=== PATIENT | female | born 1930 | race Caucasian/White ===

== ENCOUNTER 2018-03-22 16:10 | Inpatient (IN) ==
[2018-03-22] MEDS ORDERED: 0.9 % SODIUM CHLORIDE 1,000 ML IV ONE (16:34)
[2018-03-22] MEDS ORDERED: ONDANSETRON 4 MG/2 ML VIAL IV ONE (16:42)
--- NOTE | 2018-03-22 16:53 | Emergency Department Note ---
General Adult HPI - General Chief complaint: Dizziness Stated complaint: Nausea, dizzy. Time Seen by Provider: 03/22/18 16:22 Source: patient, family Mode of arrival: wheelchair Limitations: physical limitation (Both the patient and her have some gross hearing loss) - History of Present Illness HPI Narrative: 88-year-old female with on and off episodes of lightheadedness and weakness for the last day or so. She cannot give me any specifics and is a relatively poor historian. It sounds like she was at home seated and just felt lightheaded sufficiently that her convinced her to come in. He says he has been trying to get her to come in for a couple weeks. However it is unclear if there was actually a precipitating event. Patient insists that she has not fallen. She does note some nausea but denies any vomiting trouble urinating or with a bowel movement. She says she may have had some chest pain but does not specifically recall any she is currently pain-free. she states that she has some new right lower leg weakness especially at the hip now and having some trouble moving her right leg. She states that this is new, but her states that it may have been going on for longer than that. She has had a prior stroke as well as a CLINICAL RN shunt placed for NPH. Further she does have chronic decreased sensation in her right lower leg and foot unclear cause. Again I am increasing the history together between the patient and her as sometimes the stories are contradictory. The seems to have the better memory and he does take care of her and give her medicines per the chart- I did review her charts and read some of previous documentation including her last admission here so I can get a sense of her general health status as well as comorbidities. - Related Data Home Medications Medication Instructions Recorded Confirmed Cilostazol [Pletal] 100 mg PO BIDAC 10/28/15 07/15/17 Levothyroxine [Synthroid] 125 mcg PO DAILY 10/28/15 03/22/18 Lisinopril [Zestril] 10 mg PO DAILY 10/28/15 03/22/18 Omeprazole [Prilosec] 20 mg PO BIDAC 10/28/15 07/15/17 Spironolactone [Aldactone] 25 mg PO DAILY 10/28/15 07/15/17 Clopidogrel [Plavix] 75 mg PO DAILY 02/19/16 07/15/17 traMADol [Ultram] 50 - 100 mg PO Q4HP PRN 02/19/16 07/15/17 Diltiazem HCl [Cartia Xt] 300 mg PO 07/15/17 Previous Rx's Medication Instructions Recorded Ascorbic Acid [Vitamin C] 500 mg PO BID #60 tablet 02/19/16 Ferrous Sulfate 325 mg PO BIDCC #60 tablet 02/19/16 Nitrofurantoin Monohyd/M-Cryst 100 mg PO BID #14 cap 07/15/17 [Macrobid 100 mg Capsule] Allergies Allergy/AdvReac Type Severity Reaction Status Date / Time influenza virus vaccine, Allergy Severe ADMISSION Verified 12/18/17 11:52 specific TO THE [[facility] VACC,SPECIFIC] promethazine [From PHENERGAN] Allergy Intermediate CONFUSION, Verified 12/18/17 11:52 SEDATION, LETHARGY. Penicillins Allergy Unknown Rash Verified 12/18/17 11:52 lorazepam AdvReac Unknown Confusion Verified 12/18/17 11:52 meperidine AdvReac Unknown Nausea/Vomi Verified 12/18/17 11:52 ting Review of Systems Review of Systems: I did attempt to get a 12 point review of systems but as noted in the HPI she is a relatively poor historian and so it is unclear if this is reliable or not. Anyways per the HPI all negative review of systems except as noted above Limitations: ROS unobtainable due to patients medical condition Past Medical History - Past Medical History [facility] Narrative: Some of the history I was able to verify with the patient i.e. stroke history- notably patient says that she did not have any residual deficits after the stroke years ago Source: old records reviewed, obtained from family Medical history: Reports: arthritis, CVA, GERD, hypertension, peripheral artery disease, thyroid disease, other (NPH status post shunt, anemia) Psychiatric history: Reports: no psych history PRODUCTION HELPER history: Reports: non-contributory Surgical history ED: Reports: appendectomy, hysterectomy, orthopedic, other ( Cervical discectomy), tonsillectomy, other (CLINICAL RN shunt, rectocele, bladder) - Social History smoking status: Former smoker Alcohol use: Reports: Rarely Drug use: Reports: none Physical Exam No acute distress resting comfortably. Normocephalic atraumatic. Conjunctive are clear sclerae nonicteric. No nasal discharge or congestion. Oropharynx is pink and moist. Neck is supple without lymphadenopathy thyromegaly or carotid bruit. Heart is regular rate and rhythm no murmur appreciated. Lungs are clear to auscultation bilaterally without wheezes rales rhonchi or respiratory distress. Abdomen is soft nontender nondistended. No peritoneal signs or guarding. No pedal edema. +2 radial pulse. Alert oriented. No dysarthria tremor or ataxia. Cranial nerves II through XII grossly intact. Notable weakness of the right leg at the hip flexors/extensors. Poor short-term memory . otherwise neuro exam negative Limitations: no limitations Course Vital Signs Temperature 97.1 F 03/22/18 16:11 Pulse Rate 72 03/22/18 16:11 Respiratory Rate 26 H 03/22/18 16:11 Blood Pressure 133/73 03/22/18 16:11 Pulse Oximetry (%) 100 03/22/18 16:11 Temperature 97.1 F 03/22/18 16:11 Pulse Rate 81 03/22/18 18:01 Respiratory Rate 15 03/22/18 18:56 Blood Pressure 94/77 03/22/18 18:32 Pulse Oximetry (%) 99 03/22/18 18:01 Medical Decision Making - Medical Records Medical records reviewed: Yes I reviewed the patient's medical records. - Lab Data Lab results reviewed: Yes I reviewed the patient's lab results. Result diagrams: 03/22/18 16:48 03/22/18 16:48 Lab Results 03/22/18 03/22/18 03/22/18 Range/Units 16:48 16:48 16:48 WBC 5.6 (4.5-11.0) K/mcL RBC 3.03 L (4.00-5.20) M/mcL Hgb 6.9 L* (12.0-15.0) g/dL Hct 22.4 L (36.0-48.0) % POC Hct 23.0 L (36.0-48.0) % MCV 74.1 L (80.0-100.0) fL MCH 22.8 L (26.0-34.0) pg MCHC 30.7 L (31.0-36.0) g/dL RDW 18.8 H (11.5-14.5) % Plt Count 280 (140-440) K/mcL MPV 9.5 (7.4-10.4) fL Gran % 63.6 (38.0-78.0) % Lymph % (Auto) 26.1 (15.5-49.0) % [place] % (Auto) 6.8 (1.0-12.0) % Eos % (Auto) 3.3 (0.0-7.0) % Baso % (Auto) 0.2 (0.0-2.0) % Gran # 3.5 (1.8-8.0) K/mcL Lymph # (Auto) 1.5 (1.5-4.8) K/mcL Kitt[place] # (Auto) 0.4 (0.1-0.9) K/mcL Eos # (Auto) 0.2 (0.0-0.7) K/mcL Baso # (Auto) 0 (0.0-0.3) K/mcL POC Sodium 139 (133-145) mmol/L Sodium 138 (133-145) mmol/L POC Potassium 3.9 (3.3-5.1) mmol/L Potassium 4.1 (3.3-5.1) mmol/L POC Chloride 105 (96-108) mmol/L Chloride 101 (96-108) mmol/L Carbon Dioxide 22 (22-30) mmol/L POC Total CO2 23 (22-30) mmol/L Anion Gap 15.0 (8-16) POC BUN 26 H (8-23) mg/dl BUN 25 H (8-23) mg/dl Creatinine 1.2 H (0.6-1.1) mg/dl POC Creatinine 1.3 H (0.6-1.1) mg/dl GFR Calculation 40 Glucose 105 (70-105) mg/dL POC Glucose 104 (70-105) mg/dL Calcium 9.2 (8.6-10.4) mg/dl POC WB Ioniz Calcium 1.19 (1.16-1.32) mmol/L Total Bilirubin < 0.2 (0.0-1.0) mg/dL AST 17 (0-37) U/l ALT 12 (0-40) U/l Alkaline Phosphatase 82 (39-117) U/L Troponin T 0.03 (0-0.03) ng/ml NT-Pro-B Natriuret Pep (0-450) pg/ml Total Protein 6.9 (5.9-8.4) gm/dL Albumin 4.4 (3.2-5.2) gm/dL Globulin 2.5 (2.2-3.7) gm/dL Albumin/Globulin Ratio 1.8 (1.0-2.3) 03/22/18 Range/Units 16:48 WBC (4.5-11.0) K/mcL RBC (4.00-5.20) M/mcL Hgb (12.0-15.0) g/dL Hct (36.0-48.0) % POC Hct (36.0-48.0) % MCV (80.0-100.0) fL MCH (26.0-34.0) pg MCHC (31.0-36.0) g/dL RDW (11.5-14.5) % Plt Count (140-440) K/mcL MPV (7.4-10.4) fL Gran % (38.0-78.0) % Lymph % (Auto) (15.5-49.0) % Kitt[place] % (Auto) (1.0-12.0) % Eos % (Auto) (0.0-7.0) % Baso % (Auto) (0.0-2.0) % Gran # (1.8-8.0) K/mcL Lymph # (Auto) (1.5-4.8) K/mcL Kitt[place] # (Auto) (0.1-0.9) K/mcL Eos # (Auto) (0.0-0.7) K/mcL Baso # (Auto) (0.0-0.3) K/mcL POC Sodium (133-145) mmol/L Sodium (133-145) mmol/L POC Potassium (3.3-5.1) mmol/L Potassium (3.3-5.1) mmol/L POC Chloride (96-108) mmol/L Chloride (96-108) mmol/L Carbon Dioxide (22-30) mmol/L POC Total CO2 (22-30) mmol/L Anion Gap (8-16) POC BUN (8-23) mg/dl BUN (8-23) mg/dl Creatinine (0.6-1.1) mg/dl POC Creatinine (0.6-1.1) mg/dl GFR Calculation Glucose (70-105) mg/dL POC Glucose (70-105) mg/dL Calcium (8.6-10.4) mg/dl POC WB Ioniz Calcium (1.16-1.32) mmol/L Total Bilirubin (0.0-1.0) mg/dL AST (0-37) U/l ALT (0-40) U/l Alkaline Phosphatase (39-117) U/L Troponin T (0-0.03) ng/ml NT-Pro-B Natriuret Pep 206.8 (0-450) pg/ml Total Protein (5.9-8.4) gm/dL Albumin (3.2-5.2) gm/dL Globulin (2.2-3.7) gm/dL Albumin/Globulin Ratio (1.0-2.3) - Radiology Data Radiology results reviewed: Yes I reviewed the patient's radiology results. CT scan of the head shows no acute findings but she does have chronic small subdural hematoma with some chronic ischemic changes. Also CLINICAL RN shunt in place Chest x-ray shows volume overload mild CHF. CLINICAL RN shunt again looks in place - EKG Data EKG #1 EKG attestation: Yes I reviewed and interpreted this EKG. EKG results narrative: EKG shows a rate of 73 with a right bundle branch block which is not new compared with 12/18/2017. There is horizontal ST depression in V4 to V6 approximately 1 full box-this does appear to be new but nonspecific Disposition Pt seen by INSTRUCTOR PAINTING/PA only: No Clinical Impression: Weakness generalized, Mild cognitive impairment with memory loss CHF (congestive heart failure) Qualifiers: Heart failure type: unspecified Heart failure chronicity: unspecified Qualified Code(s): I50.9 - Heart failure, unspecified Iron deficiency anemia Qualifiers: Iron deficiency anemia type: unspecified iron deficiency Qualified Code(s): D50.9 - Iron deficiency anemia, unspecified Summary: She has nonspecific symptoms that she cannot really describe to me well. However it does appear that she has got some new right leg weakness concern for possible CVA versus CLINICAL RN shunt issue versus?. Additionally the nausea and weakness are concerning as well so we will check laboratory. It is unclear if review of systems is reliable but she is not complaining of belly pain nor shortness of breath. Her lungs are clear on exam but we will check x-ray just to be sure no occult findings At this point with her EKG showing new findings of ST depression in the lateral leads will check a troponin as well although she is not having chest pain at this time Chest x-ray showed mild CHF with volume overload features. Start furosemide and add proBNP. She is already on spironolactone and lisinopril. Blood pressure is normal at this point CT scan head without contrast again shows stable CLINICAL RN shunt chronic findings but no acute stroke. Found to have low hemoglobin-when compared to past does look like she has been leaking hemoglobin over the last 6 months or so likely-MCV is low as well with mild increase in BUN. She saw Dr. 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 I discussed the case again with Dr. Sherrie jacobson and he agreed to see her in the hospital. He recommended colonoscopy and advised me to discuss that with her. The patient and her do want colonoscopy. Transfusion is ordered for 3 units PRBCs with 1 to hold I also discussed case with hospitalist, Dr. Erickson Munoz who agreed to accept patient for further care in the hospital. She will be admitted for transfusion and further workup of acute on chronic symptomatic anemia likely from GI loss Disposition: Xfer As Inpt ([facility]) Condition: Serious Referrals: Kavon Fitzpatrick MD [Primary Care Provider] -
--- NOTE | 2018-03-22 17:19 | Cat Scan Report ---
CLINICAL INFORMATION: COMPARISON: None. TECHNIQUE: 2.5 mm helical slices were obtained in the skull base to vertex. Following reconstruction, axial reformatted images were reviewed at bone and parenchymal windows. The exam was performed using radiation dose optimization techniques including, but not limited to, automated exposure control, adjustment of the mA and/or kV according to patient size and use of iterative reconstruction technique. FINDINGS: The ROLL PLUGGER shunt catheter enters through a right frontal craniotomy extending through right frontal lobe penetrating the septum pellucidum extending into the frontal horn of the left lateral ventricle. The shunt is in stable position. The ventricles remain normal size relative to the sulci fissures and cisterns. Minimal symmetric widening of compatible with global atrophy - expected for age. Small symmetric bilateral subdural fluid collections demonstrated long-term stability - there is no evidence of acute subdural hematoma. Mild chronic ischemic changes noted in the deep cerebral white matter. Bone windows show no osseous abnormality IMPRESSION: 1. The ROLL PLUGGER shunt catheter remains in stable position - no evidence recurrent hydrocephalus 2. Mild atrophy and chronic ischemic changes in the deep cerebral white matter - expected for age and stable 3. 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 No acute findings Interpreted and Authenticated by: Cliff Gomez 03/22/18
--- NOTE | 2018-03-22 17:21 | XRay Report ---
CLINICAL INFORMATION: Weakness COMPARISON: 12/18/2017 and 01/15/2014 FINDINGS: The heart is mildly enlarged. Mild mediastinal widening noted. Pulmonary vessels are mildly distended and there is minimal interstitial edema. No definite effusion. The PHYSICIAN ALLERGIST IMMUNOLOGIST shunt catheter overlies the right neck chest and right upper quadrant appears intact IMPRESSION: Mild CHF or volume overload Interpreted and Authenticated by: Cliff Gomez 03/22/18
[2018-03-22] MEDS ORDERED: FUROSEMIDE 20 MG/2 ML VIAL IV ONE ×3 (17:24→22:49)
[2018-03-22 17:41] LABS: Basophils # (Auto) 0 K/mcL (0.0-0.3); Basophils % (Auto) 0.2 % (0.0-2.0); Eosinophils # (Auto) 0.2 K/mcL (0.0-0.7); Eosinophils % (Auto) 3.3 % (0.0-7.0); Granulocytes % (Auto) 63.6 % (38.0-78.0); Lymphocytes # (Auto) 1.5 K/mcL (1.5-4.8); Lymphocytes % (Auto) 26.1 % (15.5-49.0); Mean Cell Volume 74.1 fL (80.0-100.0); Mean Corpuscular HGB Conc 30.7 g/dL (31.0-36.0); Mean Corpuscular Hemoglobin 22.8 pg (26.0-34.0); Monocytes # (Auto) 0.4 K/mcL (0.1-0.9); Monocytes % (Auto) 6.8 % (1.0-12.0); Platelet Count 280 K/mcL (140-440); RBC 3.03 M/mcL (4.00-5.20); Red Cell Distribution Width 18.8 % (11.5-14.5)
[2018-03-22] MEDS ORDERED: ACETAMINOPHEN 325 MG TABLET PO ONE (17:48)
[2018-03-22 17:49] LABS: ALT/SGPT 12 U/l (0-40); Albumin 4.4 gm/dL (3.2-5.2); Albumin/Globulin Ratio 1.8 (1.0-2.3); Alkaline Phosphatase 82 U/L (39-117); Blood Urea Nitrogen 25 mg/dl (8-23)
[2018-03-22] MEDS ORDERED: 0.9 % SODIUM CHLORIDE 250 ML IV SCH ×4 (18:00→19:57)
[2018-03-22 19:53] LABS: Iron 33 mcg/dl (37-145); Transferrin % Saturation 6 % (15-50); Unsaturated Iron Binding 450 mcg/dL (112-346)
--- NOTE | 2018-03-22 20:10 | Internal Med History&Physical ---
Medical - H&P: HPI Patient information: Note initiated : 03/22/18 at 8:09 pm Service Date, if different from initiated Date: [] Patient: Wendy Donald a 88 y/o F admitted on 03/22/18 for Nausea, dizzy.. Chief Complaint: [] Chief complaint: weakness History of present illness: Ms. Donald is a 88 year old F with on and off episodes of lightheadedness and weakness for the last day or so. She cannot give me any specifics and is a relatively poor historian. It sounds like she was at home seated and just felt lightheaded sufficiently that her convinced her to come in. He says he has been trying to get her to come in for a couple weeks. However it is unclear if there was actually a precipitating event. Patient insists that she has not fallen. She does note some nausea but denies any vomiting trouble urinating or with a bowel movement. She denies chest pain but originally in EMD said she has some new right lower leg weakness especially at the hip now and having some trouble moving her right leg. She states that this is new, but her states that it may have been going on for longer than that. To my interview after plan for admission she states her legs are both fine. She has had a prior stroke as well as a PHARMACY CARE COORDINATOR shunt placed for NPH. At this time patient is agreeable to admission and I counseled her that plan is for colonoscopy following blood transfusion - Constitutional Constitutional: Present: as per HPI, weakness. Absent: excessive sweating - Cardiovascular Cardiovascular: Present: dyspnea on exertion. Absent: chest pain, irregular heart rhythm, palpatations, syncope - Respiratory Respiratory: Present: dyspnea on exertion. Absent: cough, chest congestion, excessive phlegm production - Gastrointestinal Gastrointestinal: Absent: abdominal pain, coffee ground emesis, constipation, diarrhea, hematemesis, melena - Genitourinary Genitourinary: Present: menorrhagia, vaginal discharge. Absent: abnormal vaginal bleeding Menstruation: Present: post menopausal - Musculoskeletal Musculoskeletal: Absent: muscle weakness, myalgias - Neurological Neurological: Present: dizziness, memory loss (states memory worse with age), weakness Medical - H&P: PMH Medical history: no PUD, no cancer, no bleeding disorder and no history of past anemia Surgical history: thinks she had past EGD but not colonoscopy. pt says not sure really Pertinent family history: denies family history of ulcers Functional capacity: independent ambulation Smoking status: Unknown if ever smoked Have you smoked in the last 12 months: No Drug use: none Medical - H&P: Meds Home Medications Medication Instructions Recorded Confirmed Type Cilostazol [Pletal] 100 mg PO BIDAC 10/28/15 07/15/17 History Levothyroxine [Synthroid] 125 mcg PO DAILY 10/28/15 03/22/18 History Lisinopril [Zestril] 10 mg PO DAILY 10/28/15 03/22/18 History Omeprazole [Prilosec] 20 mg PO BIDAC 10/28/15 07/15/17 History Spironolactone [Aldactone] 25 mg PO DAILY 10/28/15 07/15/17 History Ascorbic Acid [Vitamin C] 500 mg PO BID #60 tablet 02/19/16 07/15/17 Rx Clopidogrel [Plavix] 75 mg PO DAILY 02/19/16 07/15/17 History Ferrous Sulfate 325 mg PO BIDCC #60 tablet 02/19/16 07/15/17 Rx traMADol [Ultram] 50 - 100 mg PO Q4HP PRN 02/19/16 07/15/17 History Diltiazem HCl [Cartia Xt] 300 mg PO 07/15/17 History Nitrofurantoin Monohyd/M-Cryst 100 mg PO BID #14 cap 07/15/17 Rx [Macrobid 100 mg Capsule] Allergies Allergy/AdvReac Type Severity Reaction Status Date / Time influenza virus vaccine, Allergy Severe ADMISSION Verified 12/18/17 11:52 specific TO THE [[facility] VACC,SPECIFIC] promethazine [From PHENERGAN] Allergy Intermediate CONFUSION, Verified 12/18/17 11:52 SEDATION, LETHARGY. Penicillins Allergy Mild Rash Verified 03/22/18 20:17 lorazepam AdvReac Mild Confusion Verified 03/22/18 20:17 meperidine AdvReac Mild Nausea/Vomi Verified 03/22/18 20:17 ting Medical - H&P: Exam - Constitutional Vitals: Temp Pulse Resp BP Pulse Ox 97.1 F 67 21 136/73 98 03/22/18 16:11 03/22/18 19:31 03/22/18 19:31 03/22/18 19:31 03/22/18 19:31 General appearance: average body habitus, cooperative, no acute distress - Head Head exam: Present: atraumatic - Eye Eye exam: Present: normal appearance. Absent: scleral icterus - Neck Neck exam: Absent: tenderness - Expanded Neck Exam Neck exam: Absent: anterior neck swelling, tracheal deviation - Respiratory Respiratory exam: Present: normal respiratory exam, CTAB. Absent: rales, respiratory distress - Cardiovascular Cardiovascular exam: Present: normal rate and rhythm - GI/Abdominal GI/Abdominal exam: Present: normal bowel sounds, soft. Absent: rebound, tenderness - Extremities Exam Extremities exam: Absent: calf tenderness, pedal edema - Expanded Upper Extremities Exam Vascular: Present: radial pulse (2+) - Expanded Lower Extremities Exam Neuro vascular tendon exam: Absent: motor deficit (both quads, and ankle flexion and extension normal strength. hamstring equal bilat) Medical - H&P: Reslt - Labs CBC & Chem 7: 03/22/18 16:48 03/22/18 16:48 Labs: Short CBC 03/22/18 Range/Units 16:48 WBC 5.6 (4.5-11.0) K/mcL Hgb 6.9 L* (12.0-15.0) g/dL Hct 22.4 L (36.0-48.0) % Plt Count 280 (140-440) K/mcL BMP 03/22/18 16:48 Sodium 138 Potassium 4.1 Chloride 101 Carbon Dioxide 22 BUN 25 H Creatinine 1.2 H Glucose 105 Calcium 9.2 Cardiac Enzymes 03/22/18 Range/Units 16:48 Troponin T 0.03 (0-0.03) ng/ml Liver Function 03/22/18 Range/Units 16:48 Total Bilirubin < 0.2 (0.0-1.0) mg/dL AST 17 (0-37) U/l ALT 12 (0-40) U/l Alkaline Phosphatase 82 (39-117) U/L Albumin 4.4 (3.2-5.2) gm/dL - EKG Data EKG shows normal: sinus rhythm, ST-T waves (nonspecific lateral STTW changes) Medical - H&P: A/P (1) CHF (congestive heart failure) Current visit: Yes Status: Acute will add furosemide between units of blood transfusion (2) Iron deficiency anemia Current visit: Yes Status: Acute check iron studies and transfuse 2 units. pt symptomatic so admitted for transfusion and colonoscopy with GI consult (3) Mild cognitive impairment with memory loss Current visit: Yes Status: Chronic stable - Narrative A/P Narrative: 55 mins spent in evaluation and coordination of care for this admission today
[2018-03-22] MEDS ORDERED: ONDANSETRON 4 MG/2 ML VIAL IV PRN (20:50)
[2018-03-22] MEDS ORDERED: POLYETHYLENE GLYCOL 3350 17 GM PACKET PO ONE ×2 (20:57→21:55)
[2018-03-22] MEDS ORDERED: POTASSIUM CHLORIDE 20 MEQ PACKET PO ONE (20:58)
[2018-03-22] MEDS: 0.9 % SODIUM CHLORIDE 10 ML SYRINGE IV SCH (22:00)
[2018-03-23] MEDS: 0.9 % SODIUM CHLORIDE 10 ML SYRINGE IV SCH ×2 (06:33→13:40)
[2018-03-23 07:14] LABS: Basophils # (Auto) 0 K/mcL (0.0-0.3); Basophils % (Auto) 0 % (0.0-2.0); Eosinophils # (Auto) 0 K/mcL (0.0-0.7); Eosinophils % (Auto) 0.2 % (0.0-7.0); Granulocytes % (Auto) 94.9 % (38.0-78.0); Lymphocytes # (Auto) 0.3 K/mcL (1.5-4.8); Lymphocytes % (Auto) 2.7 % (15.5-49.0); Mean Cell Volume 76.8 fL (80.0-100.0); Mean Corpuscular HGB Conc 31.7 g/dL (31.0-36.0); Mean Corpuscular Hemoglobin 24.4 pg (26.0-34.0); Monocytes # (Auto) 0.3 K/mcL (0.1-0.9); Monocytes % (Auto) 2.2 % (1.0-12.0); Platelet Count 230 K/mcL (140-440); RBC 4.38 M/mcL (4.00-5.20); Red Cell Distribution Width 18.9 % (11.5-14.5)
[2018-03-23] MEDS ORDERED: LEVOTHYROXINE 125 MCG TABLET PO SCH (07:30)
[2018-03-23] MEDS ORDERED: PEG 3350/NA SULF,BICARB,CL/KCL 4,000 ML ORAL.SOL PO ONE (08:00)
[2018-03-23] MEDS: PANTOPRAZOLE 40 MG VIAL IV SCH ×2 (08:07→16:41)
[2018-03-23] MEDS ORDERED: PROPOFOL 200 MG/20 ML VIAL IV SCH (08:15)
[2018-03-23] MEDS ORDERED: MIDAZOLAM 2 MG/2 ML VIAL IV SCH (08:15)
[2018-03-23] MEDS ORDERED: PROPOFOL 20 ML IV ONE (10:11)
[2018-03-23] MEDS ORDERED: MAGNESIUM SULFATE 8.12 MEQ in DEXTROSE 5% IN WATER 50 ML IV ONE (10:11)
[2018-03-23] MEDS ORDERED: MAGNESIUM SULFATE 2 GM/50 ML BAG IV ONE (10:30)
--- NOTE | 2018-03-23 10:49 | Consultation ---
DATE OF CONSULTATION: 03/22/2018 CHIEF COMPLAINT: Iron deficiency anemia with Hemoccult-positive stool. HISTORY OF PRESENT ILLNESS: The patient is an 88-year-old white female who unfortunately is a very poor historian as she has evident dementia. She was brought to the hospital with some vague symptoms of nausea and lightheadedness, perhaps dizziness in recent days and maybe weeks. She really cannot provide any insight into her history. The emergency room physician ordered some laboratory studies and found that her hemoglobin is only 6.9 and her MCV is low at 74. By comparison in December of this year, her hemoglobin was 9.4 with low MCV at 79, but in July 2017, hemoglobin was 12.6 and MCV 94. Her creatinine is 1.2 and BUN 25. The cause of the microcytic anemia is presumably iron deficiency. She denies any abdominal pain or irregular bowel function. No obvious gross bleeding, either melena or bright red blood described by the patient. She really does not have any significant active complaints. She appears comfortable. I went ahead and looked in our office records, and I see that she underwent a colonoscopy in 2011. I am not sure if I did that procedure or whether it was someone else in our office, but the colonoscopy showed only small hyperplastic polyps, mild hemorrhoid formation, and severe diverticulosis. I did see this patient in September 2014 for iron deficiency. At that time, she was not anemic, but she was iron deficient with only 10% iron saturation. EGD at that time revealed a moderate hiatal hernia but without evident Sebastian erosions. 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 There were no ulcers. She was seen in our office by the nurse practitioner in October 2014 most recently, 3-1/2 years ago. At that time, the recommendation was to have the patient remain on iron supplementation lifelong. Perhaps the dose could have been reduced from b.i.d. dosing with vitamin C b.i.d., but it was felt that the patient was going to need at least some iron supplementation the rest of her life. I see that on her medication list, she does have iron listed, but she does not know if she is taking it or not. Her seems to remember that she had been on it, but that was " He does not believe that she is taking it currently or recently. PAST MEDICAL HISTORY: The apparent dementia. In fact, she was described as frequently forgetful back in 2013 when I last saw her. She also has hypothyroidism . MEDS AN OUTPATIENT LISTED: Include Pletal, Synthroid, Zestril, Prilosec 20 mg b.i.d., Aldactone, vitamin C and ferrous sulfate are listed, Plavix 75 mg daily, tramadol p.r.n. pain, diltiazem 300 mg. Again, it is not clear which medications, if any, she is currently taking. ALLERGIES: PENICILLIN AND PHENERGAN WELL MEPERIDINE AND LORAZEPAM. SOCIAL HISTORY: No smoking. No alcohol. She lives at home with her . PHYSICAL EXAMINATION: VITAL SIGNS: see VITAL SIGNS: Blood pressure 136/73, pulse 67, respirations 21, temperature 97.1 degrees. GENERAL: The patient is awake and alert. She is oriented in that she knows her name and birthdate, but her history is as mentioned above, very sketchy. She appears in no acute distress. She is calm and cooperative. SKIN: Without stigmata of chronic liver disease. Airway is patent. LUNGS: Clear bilaterally to auscultation. CARDIAC: Regular rate and rhythm without gallop. ABDOMEN: Soft, nontender, nondistended. No mass, no hepatosplenomegaly. No evident ascites. EXTREMITIES: Without edema. LABORATORY STUDIES: White count 5600, hemoglobin 6.9 with MCV 74, platelets 280,000. BUN 25 with creatinine 1.2, glucose 105. Liver chemistries are within normal limits. Albumin 4.4. ASSESSMENT AND RECOMMENDATIONS: This patient does have iron deficiency of longstanding duration. It has been at least 3-1/2 years that she has been known to have iron deficiency. I will say that on the prior evaluation, she was not anemic like she is now. Based on the fact that she had a moderate hiatal hernia a few years ago and a colonoscopy showing severe diverticulosis but no cause of iron deficiency anemia, I would think her iron deficiency anemia may be on the basis of an enlarging hiatal hernia which can cause iron deficiency anemia (Sebastian erosions). She may have arteriovenous malformations throughout the small bowel which would be a fairly common cause of anemia in a person of this age. Of course, there is the possibility of a tumor in the GI tract, although frankly, I would not have expected her to have survived for 3-1/2 or more years with a malignancy underlying her anemia. I was originally going to do an upper GI endoscopy and colonoscopy if the patient was willing. When I talked to her about a colonoscopy tonight, she is hesitant understandably. She asked whether it is " I told her it is not absolutely necessary. In fact, I told her that if the colonoscopy findings were the same as they were in 2012 which is likely, then colonoscopy would not shed light on the cause for her anemia. She politely declines colonoscopy with this in mind. I do not think that is unreasonable given her circumstances. I will recommend an upper GI endoscopy mostly to see if there is enlargement of the hiatal hernia and/or evidence of Sebastian erosions at this time. Whether there are Sebastian erosions or not, I would still recommend being sure the patient is resumed on iron supplementation with vitamin C b.i.d. Possible parenteral iron administration may be considered if she does not tolerate iron, but I suspect some of her failure to take iron may be more a matter of her forgetting and not being aware of what her medication regimen is supposed to be. So EGD is planned for tomorrow late morning. I will make further recommendations based upon findings at endoscopy. Thank you for this consultation. CRISTINA:gary Job ID: [id number] Doc ID: [id number] Cliff Balderas MD
[2018-03-23] MEDS ORDERED: IRON SUCROSE COMPLEX 100 MG/5 ML VIAL IV ONE (12:00)
--- NOTE | 2018-03-23 13:01 | Discharge Summary ---
Medical - DS: Prov Patient information: Note initiated : 03/23/18 at 12:56 pm Service Date, if different from initiated Date: [] Patient: Wendy Donald 88 y/o F admitted on 03/22/18 for Nausea, dizzy.. Chief Complaint: [] Date of admission: 03/22/18 19:45 Discharge date: 03/23/18 Primary care physician: Kavon Fitzpatrick Admitting clinician: Edgar Munoz Attending physician on admission: Edgar Munoz Consults: 03/22/18 18:57 Consult to Physician [CONS] Stat Comment: Consulting Provider: Edgar Munoz Reason For Exam: Physician to Consult Consult to Physician [CONS] Stat Comment: Consulting Provider: Cliff Balderas Reason For Exam: Physician to Consult Attending physician on discharge: Edgar Munoz Medical - DS: Meds - Discharge Medications Prescriptions: RX: Ascorbic Acid [Vitamin C] 500 mg PO BID #60 tab RX: Docusate Sodium [Stool Softener] 100 mg PO BID #100 cap RX: Ferrous Sulfate 325 mg PO BIDCC #60 tab Polyethylene Glycol 3350 [Miralax] 17 gm PO DAILY PRN #30 powd.pack PRN Reason: Constipation Active and Home Medications: Home Medications RX: Cilostazol [Pletal] 100 mg PO BIDAC 10/28/15 [History Confirmed 07/15/17 Last Taken Unknown] RX: Levothyroxine [Synthroid] 125 mcg PO DAILY 10/28/15 [History Confirmed 03/22 Last Taken Unknown] RX: Lisinopril [Zestril] 10 mg PO DAILY 10/28/15 [History Confirmed 03/22/18 Last Taken Unknown] RX: Omeprazole [Prilosec] 20 mg PO BIDAC 10/28/15 [History Confirmed 07/15/17 Last Taken Unknown] RX: Spironolactone [Aldactone] 25 mg PO DAILY 10/28/15 [History Confirmed Last Taken Unknown] RX: Ascorbic Acid [Vitamin C] 500 mg PO BID #60 tablet 02/19/16 [Rx Confirmed Last Taken Unknown] RX: Clopidogrel [Plavix] 75 mg PO DAILY 02/19/16 [History Confirmed 07/15/17 Last Taken Unknown] RX: Ferrous Sulfate 325 mg PO BIDCC #60 tablet 02/19/16 [Rx Confirmed 07/15/17 Last Taken Unknown] RX: traMADol [Ultram] 50 - 100 mg PO Q4HP PRN 02/19/16 [History Confirmed Last Taken Unknown] Diltiazem HCl [Cartia Xt] 300 mg PO 07/15/17 [History Last Taken Unknown] Nitrofurantoin Monohyd/M-Cryst [Macrobid 100 mg Capsule] 100 mg PO BID #14 cap 07/15/17 [Rx Last Taken Unknown] Medical - DS: Hosp Hospital course: Mr. Donald is a 88 year old F admitted with dizzyness and weakness. found to have severe iron deficiency anemia with hgb 5.9. EGD show large hiatal hernia and barretts esophagus without acute bleeding source. colonoscopy declined but recent in last 3 years hyperplastic polyps and no cancer. There were diverticuli. Pt without active bleeding here. Iron level 31 with percent sat 6% so given 200mg iv venofer today in addition to 2 units PRBC given overnight. Pt will have lunch, iron infusion and go home with . He lays out her meds and says she has not been on iron for at least [address] Balderas has noted pt has chronic iron deficiency without acute GI bleeding source found but GI source is suspected. Pt does not desire further interventional workup or treatment. Discharge diagnosis: Iron Deficiency Anemia Secondary discharge diagnosis: symptomatic anemia dementia hypothyroidism Reason for admission: symptomatic anemia Complications: none - Time Spent with Patient Total time spent providing and/or coordinating discharge services: Greater than 30 minutes Specific discharge activities: arranging discharge and follow up plan. discussion with Dr. Johnson and the patient and Medical - DS: Exam - Constitutional Vitals: Vital Signs Temp Pulse Pulse Pulse Resp BP BP 03/23/18 11:29 98 F 16 130/69 03/23/18 11:16 98.2 F 131/49 03/23/18 11:08 116/46 03/23/18 10:54 67 103/49 03/23/18 10:49 70 108/45 03/23/18 10:46 71 140/51 03/23/18 10:44 72 107/47 03/23/18 10:32 79 16 153/78 03/23/18 08:17 97.7 F 123/62 03/23/18 04:16 98.8 F 79 18 146/66 03/23/18 04:13 98.0 F 146/66 03/23/18 02:05 98.4 F 76 18 114/51 03/23/18 02:02 98.0 F 114/51 03/23/18 01:50 98.3 F 76 22 110/62 03/22/18 23:23 73 110/62 03/22/18 23:19 74 90/60 03/22/18 23:16 81 143/120 03/22/18 23:15 98.3 F 76 25 H 03/22/18 23:00 97.9 F 71 20 128/58 03/22/18 22:37 68 129/59 03/22/18 22:35 97.9 F 68 22 129/59 03/22/18 21:00 73 149/70 03/22/18 20:55 98.1 F 69 20 149/70 03/22/18 20:46 161/91 03/22/18 20:45 97.9 F 73 20 161/91 03/22/18 20:16 67 141/67 03/22/18 20:04 68 130/55 03/22/18 19:45 98.1 F 65 65 16 130/55 03/22/18 19:31 67 21 136/73 03/22/18 19:25 69 18 131/59 03/22/18 19:01 23 H 124/54 03/22/18 18:56 15 03/22/18 18:36 18 03/22/18 18:32 14 94/77 03/22/18 18:23 18 03/22/18 18:16 20 148/118 03/22/18 18:15 16 03/22/18 18:01 81 22 111/91 03/22/18 17:41 26 H 127/69 03/22/18 17:40 17 144/71 03/22/18 17:39 23 H 136/66 03/22/18 17:31 67 18 134/75 03/22/18 17:25 67 120/68 03/22/18 16:46 69 29 H 125/68 03/22/18 16:40 66 20 151/59 03/22/18 16:11 97.1 F 72 26 H 133/73 Pulse Ox 03/23/18 11:29 96 03/23/18 11:16 100 03/23/18 11:08 90 03/23/18 10:54 98 03/23/18 10:49 98 03/23/18 10:46 96 03/23/18 10:44 97 03/23/18 10:32 91 03/23/18 08:17 99 03/23/18 04:16 97 03/23/18 04:13 99 03/23/18 02:05 95 03/23/18 02:02 95 03/23/18 01:50 93 03/22/18 23:23 89 L 03/22/18 23:19 89 L 03/22/18 23:16 93 03/22/18 23:15 91 03/22/18 23:00 03/22/18 22:37 92 03/22/18 22:35 92 03/22/18 21:00 100 03/22/18 20:55 97 03/22/18 20:46 03/22/18 20:45 95 03/22/18 20:16 92 03/22/18 20:04 97 03/22/18 19:45 96 03/22/18 19:31 98 03/22/18 19:25 03/22/18 19:01 03/22/18 18:56 03/22/18 18:36 03/22/18 18:32 03/22/18 18:23 03/22/18 18:16 03/22/18 18:15 03/22/18 18:01 99 03/22/18 17:41 03/22/18 17:40 03/22/18 17:39 03/22/18 17:31 97 03/22/18 17:25 99 03/22/18 16:46 91 03/22/18 16:40 100 03/22/18 16:11 100 Intake and Output 03/22/18 03/23/18 03/23/18 21:59 05:59 13:59 Intake Total 1114 / 1114 930 / 930 Output Total 700 / 700 1974 / 1974 Balance 414 / 414 -1045 / -1045 Intake: IV 789 / 789 125 / 125 Sodium Chloride 0.9% 1,000 ml @ 749 / 749 Wide Open IV BOLUS ONE Rx#: [id number] Sodium Chloride 0.9% 250 ml @ 40 / 40 125 / 125 20 mls/hr IV .[id number] [facility] Rx#: [id number] Oral 480 / 480 Blood Product 325 / 325 325 / 325 Output: Void Amount 700 / 700 1974 # of times incontinent of urine 0 / 0 Other: Meal Sandwhich Percent of Meal Consumed 50% Feeding Ability Independent # Voids 1 1 Weight 148 lb 8 oz General appearance: average body habitus, no acute distress - Respiratory Respiratory exam: Present: normal respiratory exam - Cardiovascular Cardiovascular exam: Present: normal rate and rhythm - GI/Abdominal GI/Abdominal exam: Present: soft Medical - DS: Data Labs on day of discharge: Labs from last 24 hours 03/23/18 03/23/18 03/22/18 03:53 03:53 16:48 WBC 12.3 H RBC 4.38 Hgb 10.7 L Hct 33.7 L POC Hct MCV 76.8 L MCH 24.4 L MCHC 31.7 RDW 18.9 H Plt Count 230 MPV 9.7 Gran % 94.9 H Lymph % (Auto) 2.7 L [place] % (Auto) 2.2 Eos % (Auto) 0.2 Baso % (Auto) 0 Gran # 11.7 H Lymph # (Auto) 0.3 L [place] # (Auto) 0.3 Eos # (Auto) 0 Baso # (Auto) 0 PT 13.5 INR 1.0 APTT 27 POC Sodium Sodium POC Potassium Potassium POC Chloride Chloride Carbon Dioxide POC Total CO2 Anion Gap POC BUN BUN Creatinine POC Creatinine GFR Calculation Glucose POC Glucose Calcium POC WB Ioniz Calcium Magnesium 1.9 Iron TIBC Unsat Iron Binding Transferrin % Sat Total Bilirubin AST ALT Alkaline Phosphatase Troponin T NT-Pro-B Natriuret Pep Total Protein Albumin Globulin Albumin/Globulin Ratio 03/22/18 03/22/18 03/22/18 16:48 16:48 16:48 WBC RBC Hgb Hct POC Hct MCV MCH MCHC RDW Plt Count MPV Gran % Lymph % (Auto) [place] % (Auto) Eos % (Auto) Baso % (Auto) Gran # Lymph # (Auto) [place] # (Auto) Eos # (Auto) Baso # (Auto) PT INR APTT POC Sodium Sodium POC Potassium Potassium POC Chloride Chloride Carbon Dioxide POC Total CO2 Anion Gap POC BUN BUN Creatinine POC Creatinine GFR Calculation Glucose POC Glucose Calcium POC WB Ioniz Calcium Magnesium Iron 33 L TIBC 483 H Unsat Iron Binding 450 H Transferrin % Sat 6 L Total Bilirubin AST ALT Alkaline Phosphatase Troponin T 0.03 NT-Pro-B Natriuret Pep 206.8 Total Protein Albumin Globulin Albumin/Globulin Ratio 03/22/18 03/22/18 16:48 16:48 WBC 5.6 RBC 3.03 L Hgb 6.9 L* Hct 22.4 L POC Hct 23.0 L MCV 74.1 L MCH 22.8 L MCHC 30.7 L RDW 18.8 H Plt Count 280 MPV 9.5 Gran % 63.6 Lymph % (Auto) 26.1 [place] % (Auto) 6.8 Eos % (Auto) 3.3 Baso % (Auto) 0.2 Gran # 3.5 Lymph # (Auto) 1.5 [place] # (Auto) 0.4 Eos # (Auto) 0.2 Baso # (Auto) 0 PT INR APTT POC Sodium 139 Sodium 138 POC Potassium 3.9 Potassium 4.1 POC Chloride 105 Chloride 101 Carbon Dioxide 22 POC Total CO2 23 Anion Gap 15.0 POC BUN 26 H BUN 25 H Creatinine 1.2 H POC Creatinine 1.3 H GFR Calculation 40 Glucose 105 POC Glucose 104 Calcium 9.2 POC WB Ioniz Calcium 1.19 Magnesium Iron TIBC Unsat Iron Binding Transferrin % Sat Total Bilirubin < 0.2 AST 17 ALT 12 Alkaline Phosphatase 82 Troponin T NT-Pro-B Natriuret Pep Total Protein 6.9 Albumin 4.4 Globulin 2.5 Albumin/Globulin Ratio 1.8 Medical - DS: A/P - Patient/Caregiver Discharge Instructions Activity: increase activity as tolerated, other (follow with your PCP regarding leg cramps) Diet: Cardiac - Problem Maintenance (1) CHF (congestive heart failure) Status: Acute Comment: resume home meds and limit salt Qualifiers: Heart failure type: unspecified Heart failure chronicity: chronic Qualified Code(s): I50.9 - Heart failure, unspecified (2) Iron deficiency anemia Status: Acute Comment: had been treated before. Resume iron stopped for unknown reason Qualifiers: Iron deficiency anemia type: chronic blood loss Qualified Code(s): D50.0 - Iron deficiency anemia secondary to blood loss (chronic) (3) Mild cognitive impairment with memory loss Status: Chronic Comment: monitored by - Follow up Plan Follow up with: Kavon Fitzpatrick MD [Primary Care Provider] - Disposition: Home, Self-Care Prognosis: Fair Rehab Potential: Good I certify that the patient requires SNF services: No Overall status at discharge: patient is progressing back to baseline Medical - DS: Qual - VTE Deep Vein Thrombosis/Pulmonary Embolism Present on Admission: No
--- NOTE | 2018-03-24 10:52 | Operative Note ---
DATE OF OPERATION: 03/23/2018 PROCEDURE: Esophagogastroduodenoscopy. STRETCHER DRIER OPERATOR AND MANAGER GRANT: Cliff Balderas M.D. ANESTHETIC USED: Versed 1 mg IV, propofol 50 mg IV. PREOPERATIVE DIAGNOSIS: Iron deficiency anemia with Hemoccult-positive stool. Of note, the patient declined colonoscopy. She did have one back in 2011 showing only hyperplastic polyps, small internal hemorrhoids, and severe diverticulosis. POSTOPERATIVE DIAGNOSES: 1. Moderate hiatal hernia without definite Sebastian erosions seen. 2. Emerson's esophagus without mass or ulcer. DESCRIPTION OF PROCEDURE: Prior to the procedure, the patient provided her own informed consent. The patient was evaluated and considered medically fit for endoscopy. Physical exam per consult note written last night. With the patient in the left lateral decubitus position, a gastroscope was advanced via the mouth to the esophagus under direct vision. The esophagus was notable for a small " of Emerson's esophagus. There was a moderate hiatal hernia. Within in the stomach, there are numerous fundic gland polyps consistent with PPI therapy use. Retroflex at the stomach shows the hiatal hernia but again no Sebastian erosions seen. There were no ulcers in the stomach. The duodenum was normal to the third portion. I see no arteriovenous malformations within reach of the scope. COMPLICATIONS: None immediate. RECOMMENDATIONS AND FOLLOWUP: I will recommend lifelong iron supplementation. I will talk to the patient's today about whether he thinks she has actually been taking the iron pills or not. It may have been several months since she last took iron. She was iron deficient back in 2013. Please refer to my consult note. Since the patient is reluctant to undergo colonoscopy understandably, I am not going to pursue a more aggressive workup of the source of bleeding, such as pill camera and/or balloon enteroscopy. CRISTINA:mine Job ID: [id number] Doc ID: [id number] Cliff Fitzpatrick MD
== END 2018-03-23 17:00 | disposition home or self-care (01) | DRG 812 ==
LOC: ED 16:10 → ICU 19:45
PROVIDERS: ADMIT Internal Medicine; ATTEND Internal Medicine